=== PATIENT | female | born 1975 | race African-American/Black ===

== ENCOUNTER 2016-11-06 16:08 | Emergency (ER) | payer SELFPAY | END 2016-11-06 18:30 | disposition home or self-care (01) | LOC: D.ER 16:08 | DX: H66.001 Acute suppurative otitis media without spontaneous rupture of ear drum, right ear (principal); F17.200 Nicotine dependence, unspecified, uncomplicated ==

== ENCOUNTER 2017-10-30 18:41 | Emergency (ER) | payer BC ==
[~2017-10-30] VITALS: Ht 160 cm; Wt 90.9 kg
[2017-10-30 19:10] VITALS: Ht 160 cm; Wt 90.9 kg
[2017-10-30] MEDS ORDERED: TORADOL10 MG PO (22:06)
== END 2017-10-30 23:02 | disposition home or self-care (01) ==
LOC: D.ER 18:41
DX: S99.912A Unspecified injury of left ankle, initial encounter (principal); X58.XXXA Exposure to other specified factors, initial encounter; Y93.89 Activity, other specified; Y92.019 Unspecified place in single-family (private) house as the place of occurrence of the external cause; F17.200 Nicotine dependence, unspecified, uncomplicated